=== PATIENT | male | born 1980 | race Caucasian/White ===

== ENCOUNTER 2017-10-22 07:12 | Day surgery (SDC) | payer OTHER ==
[~2017-10-22 07:12] MED LIST: GLYCOPYRROLATE 0.4 MG INJ; NEOSTIGMINE 3 MG/3 ML SYRINGE
[2017-10-22] MEDS: SOD CHLORIDE 0.9% 1,000 ML IV ×2 (08:14→11:04)
[2017-10-22 08:17] LABS: ADD MAN DIFF? NO
[2017-10-22 08:32] LABS: BASOPHIL # 0.1 10^3/ul (0.0-0.1); BASOPHILS % 1.2 % (0.0-2.0); EOSINOPHILS # 0.2 10^3/ul (0.0-0.5); EOSINOPHILS % 2.8 % (0.0-7.0); HEMATOCRIT 44.2 % (42.0-52.0); HEMOGLOBIN 15.1 g/dl (14.0-18.0); LYMPHOCYTES # 1.9 10^3/ul (0.8-2.9); LYMPHOCYTES % 32.2 % (15.0-51.0); MEAN CORPUSCULAR HEMOGLOBIN 28.7 pg (29.0-33.0); MEAN CORPUSCULAR HGB CONC 34.2 g/dl (32.0-37.0); MEAN PLATELET VOLUME 10.9 fl (7.4-10.4); MONOCYTE # 0.4 10^3/ul (0.3-0.9); MONOCYTES % 7.2 % (0.0-11.0); NEUTROPHIL # 3.4 10^3/ul (1.6-7.5); NEUTROPHILS % 56.4 % (39.0-77.0); PLATELET COUNT 216 10^3/UL (140-415); RED BLOOD COUNT 5.26 10^6/ul (4.70-6.10); RED CELL DISTRIBUTION WIDTH 12.8 % (11.5-14.5)
[2017-10-22 08:43] LABS: ALANINE AMINOTRANSFERASE 29 IU/L (13-69); ALBUMIN 4.1 g/dl (3.3-4.9); ALBUMIN/GLOBULIN RATIO 1.28; ALKALINE PHOSPHATASE 58 IU/L (42-121); ANION GAP 14 (8-16); ASPARTATE AMINO TRANSFERASE 29 IU/L (15-46); BILIRUBIN,INDIRECT 0.4 mg/dl (0-1.1); BILIRUBIN,TOTAL 0.4 mg/dl (0.2-1.3); BLOOD UREA NITROGEN 17 mg/dl (7-20); CALCIUM 9.2 mg/dl (8.4-10.2); CARBON DIOXIDE 24 mmol/L (21-31); CHLORIDE 107 mmol/L (97-110); CREATININE 0.83 mg/dl (0.61-1.24); GLUCOSE 91 mg/dl (70-220); SODIUM 141 mmol/L (135-144); TOTAL PROTEIN 7.3 g/dl (6.1-8.1)
[2017-10-22 08:57] LABS: PROTIME 12.2 Sec (11.9-14.9)
[2017-10-22 08:58] LABS: PARTIAL THROMBOPLASTIN TIME 32.5 Sec (25.0-35.0)
[2017-10-22] MEDS ORDERED: MIDAZOLAM 1 MG/ML 2 ML INJ (09:55)
[2017-10-22] MEDS: CEFAZOLIN 2 GM/50 ML (PMX) 50 ML IVPB (09:58)
[2017-10-22] MEDS ORDERED: KETOROLAC 30 MG INJ IV (10:00)
[2017-10-22] MEDS ORDERED: DIPHENHYDRAMINE 50 MG INJ IV (10:00)
[2017-10-22] MEDS ORDERED: METOCLOPRAMIDE 10 MG INJ IV (10:00)
[2017-10-22] MEDS ORDERED: HYDROmorphONE 1 MG/5 ML IV SYRINGE IV ×2 (10:00)
[2017-10-22] MEDS ORDERED: ONDANSETRON 4 MG INJ IV (10:00)
[2017-10-22] MEDS: BUPIVACAINE 0.25% (MPF) 30 ML INJ (10:24)
[2017-10-22] MEDS ORDERED: PROPOFOL 20 ML (10:46)
[2017-10-22] MEDS ORDERED: ROCURONIUM 50 MG INJ (10:46)
[2017-10-22] MEDS ORDERED: LIDOCAINE 2% (SDV) 5 ML INJ (10:46)
[2017-10-22] MEDS ORDERED: CEFAZOLIN 1 GM INJ (10:47)
[2017-10-22] MEDS ORDERED: ONDANSETRON 4 MG INJ (10:48)
[2017-10-22] MEDS: MEPERIDINE 25 MG INJ IV (11:05)
[2017-10-22] MEDS: FENTAnyl 50 MCG/ML VIAL IV (11:05)
[2017-10-22] MEDS: HYDROCODONE/APAP (5/325) TAB PO (12:54)
== END 2017-10-22 13:12 | disposition home or self-care (01) ==
LOC: SDS 07:12
DX: K40.30 Unilateral inguinal hernia, with obstruction, without gangrene, not specified as recurrent (principal)
CPT/HCPCS: 49507; 80053; 85025; 85610; 85730